=== PATIENT | female | born 1935 | race Caucasian/White ===

== ENCOUNTER → 2018-05-15 | Outpatient (CLI) | payer OTHER | LOC: M.RAD 11:27 | DX: Z12.31 Encounter for screening mammogram for malignant neoplasm of breast (principal) ==

== ENCOUNTER 2020-01-14 15:51 | Observation (INO) | payer MEDICARE ==
[~2020-01-14] VITALS: Ht 160 cm; Wt 54.0 kg
[2020-01-14 15:55] VITALS: BP 137/61
[2020-01-14 16:12] LABS: ABSOLUTE BASOPHILS 0.1 thou/uL (0.0-0.2); ABSOLUTE LYMPHOCYTES 2.9 thou/uL (0.8-5.3); ABSOLUTE MONOCYTES 0.6 thou/uL (0.0-1.2); ABSOLUTE NEUTROPHILS 6.2 thou/uL (1.6-8.1); BASOPHILS 0.7 %; EOSINOPHILS 0.5 %; HEMATOCRIT 41.6 % (37.0-47.0); HEMOGLOBIN 14.5 gm/dL (12.0-15.0); LYMPHOCYTES 29.3 %; MCH 34.6 pg (26.0-34.0); MCHC 34.8 g/dL (28.0-37.0); MCV 99.4 fL (80.0-100.0); MONOCYTES 5.8 %; MPV 8.9 fl. (7.2-11.1); NUCLEATED RBCS 0 /100WBC; PLATELET COUNT* 225 thou/uL (150-400); POLYS 63.7 %; RBC 4.18 mil/uL (4.20-5.00); RDW-CV 12.8 % (10.5-14.5); WBC 9.8 thou/uL (4.0-11.0)
[2020-01-14 16:21] LABS: CALCIUM 10.2 mg/dL (8.5-10.1); CREATININE 1.1 mg/dL (0.6-1.3); POTASSIUM 3.9 mmol/L (3.5-5.1)
[2020-01-14 16:26] LABS: APTT 24.9 Seconds (25.0-31.3); PROTIME 10.6 Seconds (9.20-11.50)
[2020-01-14 16:32] LABS: ALBUMIN 4.1 g/dL (3.4-5.0); TOTAL BILIRUBIN 0.6 mg/dL (<0.1-1.0); TOTAL PROTEIN 7.6 g/dL (6.4-8.2)
[2020-01-14 17:08] LABS: URINE BILIRUBIN NEGATIVE (Negative); URINE BLOOD NEGATIVE (Negative); URINE CLARITY CLEAR; URINE COLOR YELLOW; URINE GLUCOSE-RANDOM NEGATIVE (Negative); URINE KETONES TRACE (Negative); URINE LEUKOCYTES-REFLEX 1+ (Negative); URINE NITRITE-REFLEX NEGATIVE (Negative); URINE PROTEIN NEGATIVE (Negative); URINE UROBILINOGEN 0.2 E.U./dl (0.2-1.0)
[2020-01-14 17:15] LABS: BACTERIA-REFLEX 1-9 Few /HPF (None Seen); CASTS None Seen /LPF (None Seen); CRYSTALS None Seen /LPF (None Seen); MUCUS None Seen strn/LPF (None Seen); SQUAMOUS 0-3 Few /LPF (0-3); URINE RBC None Seen /HPF (0-2); URINE WBC-REFLEX 0-5 Rare /HPF (0-5)
[2020-01-14 20:10] VITALS: BP 129/76
[2020-01-14 20:13] VITALS: BP 123/42
[2020-01-14 23:33] VITALS: BP 109/51
[2020-01-15 04:00] VITALS: BP 121/60
[2020-01-15 05:32] LABS: HEMATOCRIT 38.1 % (37.0-47.0); HEMOGLOBIN 13.3 gm/dL (12.0-15.0); MCH 34.4 pg (26.0-34.0); MCHC 34.9 g/dL (28.0-37.0); MCV 98.6 fL (80.0-100.0); MPV 8.6 fl. (7.2-11.1); RBC 3.86 mil/uL (4.20-5.00); RDW-CV 12.7 % (10.5-14.5); WBC 7.5 thou/uL (4.0-11.0)
[2020-01-15 05:55] LABS: CREATININE 1.1 mg/dL (0.6-1.3); MAGNESIUM 2.1 mg/dL (1.8-2.4); POTASSIUM 4.1 mmol/L (3.5-5.1)
--- NOTE | 2020-01-15 07:02 | NUR ---
PT ALERT AND ORDERED. AMBULATED WITH A STEADY GAIT. NO CHEST PAINS OR DIZZINESS REPORTED ON ADMIT OR THROUGHOUT SHIFT. CALL LIGHT IN REACH. HOURLY ROUNDING FOR SAFETY.
[2020-01-15 07:20] VITALS: BP 121/47
[2020-01-15 09:51] LABS: CHOLESTEROL 150 mg/dL (<200); HDL CHOLESTEROL 59 mg/dL (>40); LDL CHOLESTEROL 79 mg/dL (<100); SERUM ASSESSMENT Clear; TC:HDL 2.5 Ratio (Not establshd); TRIGLYCERIDE 61 mg/dL (<150); VLDL 12 mg/dL (<40)
[2020-01-15 12:09] VITALS: BP 113/50
--- NOTE | 2020-01-15 12:57 | EKG ---
[place] [address] ELECTROCARDIOGRAM REPORT Name: MILEYADIRA Jerry Room: [address]R.#: [id number] Admission: 01/14/20 Attend Phys: Amara Beaver, Discharge: Date of : 33 Date of Service: 01/14/20 1555 Report #: [id number] THIS REPORT FOR: //name// [facility] ED Test Date: 2020-01-14 Test Time: 15:55:47 Pat Name: YADIRA TREADWELL Department: Room: [facility] Gender: F Brick Tester: JUAN : 1935 Requested By: Radha Bullock Order Number: [id number] MD: Shashank Purcell Measurements Intervals [place] Rate: 152 P: [place]: QRS: -50 QRSD: 112 T: 106 QT: 320 QTc: 509 Interpretive Statements Atrial fibrillation with rapid V-rate left bundle branch block Anterior Q waves, possibly due to LVH No previous ECG available for comparison Electronically Signed On 01-15-2020 12:57:14 CDT by Shashank Purcell [email or web address] <ELECTRONICALLY SIGNED> By: Shashank Purcell MD, FACC 01/15/20 1257 1555 1555 Shashank Purcell MD, [facility] /EPI
--- NOTE | 2020-01-15 12:58 | EKG ---
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1935 Requested By: Radha Bullock Order Number: [id number] MD: Shashank Purcell Measurements Intervals [place] Rate: 84 P: 73 [place]: 154 QRS: -40 QRSD: 118 T: 91 QT: 408 QTc: 483 Interpretive Statements Sinus rhythm left bundle branch block Anterior Q waves, possibly due to LVH Compared to ECG 01/14/2020 15:55:47 Atrial fibrillation no longer present Electronically Signed On 01-15-2020 12:58:03 CDT by Shashank Purcell [email or web address] <ELECTRONICALLY SIGNED> By: Shashank Purcell MD, [facility] 01/15/20 1258 1612 1612 Shashank Purcell MD, [facility] /EPI
--- NOTE | 2020-01-15 14:21 | 2DMMODE ---
[place] [address] 2 D/M-MODE ECHOCARDIOGRAM Name: YADIRA TREADWELL Jerry Room: [address] MJulesRJules#: [id number] Admission: 01/14/20 Attend Phys: Amara Beaver, Discharge: Date of : 33 Date of Service: 01/15/20 1421 Report #: [id number] THIS REPORT FOR: cc: Cherelle Muller,Michael Perez MD [facility] ~ APPROVED REPORT Study performed: 01/15/2020 09:09:52 EXAM: Comprehensive 2D, Doppler, and color-flow Echocardiogram Patient Location: In-Patient Room #: 228 Status: routine BSA: 1.55 HR: 67 bpm BP: 121/60 mmHg Rhythm: NSR Other Information Study Quality: Good Indications Atrial Fibrillation Syncope 2D Dimensions IVSd: 9.74 (7-11mm) LVOT Diam: 18.12 (18-24mm) LVDd: 32.53 mm PWd: 7.05 (7-11mm) Ascending Ao: 29.37 (22-36mm) LVDs: 17.05 (25-40mm) Aortic Root: 29.09 mm Volumes Left Atrial Volume (Systole) LA ESV Index: 29.50 mL/m2 Aortic Valve AoV Peak Charles.: 1.38 m/s AO Peak Gr.: 7.56 mmHg LVOT Max P.11 mmHg AO Mean Gr.: 4.22 mmHg LVOT Mean P.50 mmHg LVOT Max V: 1.13 m/s AO V2 VTI: 31.24 cm LVOT Mean V: 0.73 m/s ZHANG (VTI): 2.30 cm2 LVOT V1 VTI: 27.90 [place] [address] 2 D/M-MODE ECHOCARDIOGRAM Name: YADIRA TREADWELL Room: [address]#: [id number] Admission: 01/14/20 Attend Phys: Amara Beaver, Discharge: Date of : 33 Date of Service: 01/15/20 1421 Report #: [id number] Mitral Valve E/A Ratio: 1.07 MV Decel. Time: 218.95 ms MV E Max Charles.: 0.96 m/s MV PHT: 63.50 ms MVA (PHT): 3.46 cm2 TDI E/Lateral E': 12.00 E/Medial E': 12.00 Medial E' Charles.: 0.08 m/s Lateral E' Charles.: 0.08 m/s Pulmonary Valve PV Peak Charles.: 0.85 m/s PV Peak Gr.: 2.89 mmHg Tricuspid Valve RAP Estimate: 5.00 mmHg TR Peak Gr.: 23.27 mmHg RVSP: 28.00 mmHg PA Pressure: 28.00 mmHg Left Ventricle The left ventricle is normal size. There is normal LV segmental wall motion. There is normal left ventricular wall thickness. Left ventricular systolic function is normal. LVEF is 60-65%. Transmitral Doppler flow pattern suggests impaired LV relaxation. Right Ventricle The right ventricle is normal size. The right ventricular systolic function is normal. Atria The left atrium size is normal. The right atrium size is normal. Aortic Valve The aortic valve is normal in structure. No aortic regurgitation is present. There is no aortic valvular stenosis. Mitral Valve The mitral valve is normal in structure. Mild mitral regurgitation. No evidence of mitral valve stenosis. Tricuspid Valve The tricuspid valve is normal in structure. Mild tricuspid regurgitation. [place] [address] 2 D/M-MODE ECHOCARDIOGRAM Name: YADIRA TREADWELL Room: [address]#: [id number] Admission: 01/14/20 Attend Phys: Amara Beaver, Discharge: Date of : 33 Date of Service: 01/15/20 1421 Report #: [id number] Pulmonic Valve The pulmonary valve is normal in structure. Mild pulmonic regurgitation. Great Vessels The aortic root is normal in size. IVC is normal in size and collapses >50% with inspiration. Pericardium There is no pericardial effusion. <Conclusion> The left ventricle is normal size. There is normal left ventricular wall thickness. Left ventricular systolic function is normal. LVEF is 60-65%. Transmitral Doppler flow pattern suggests impaired LV relaxation. Mild mitral regurgitation. Mild tricuspid regurgitation. No pulmonary hypertension. Mild pulmonic regurgitation. IVC is normal in size and collapses >50% with inspiration. <ELECTRONICALLY SIGNED> By: Michael Ervin MD, FACC 01/15/20 1421 142 142 Michael Ervin MD, FACC /INF
--- NOTE | 2020-01-15 16:39 | NUR ---
SW met with pt and pt son to discuss dc planning. Pt lives at home alone, independent. Pt has 5 sons who are all supportive and live in the area. SW discussed Eliquis rx assistance options if needed at dc. Pt and pt son said that they do not believe that pt is ready to dc yet as they do not feel that they've had enough explanation. SW discussed with pt nurse who is aware and informed that cardiology GAMING CAGE WORKER did discuss with pt and pt son. SW to continue to follow to assist with safe dc planning.
[2020-01-15 16:53] VITALS: BP 123/62
[2020-01-15 20:00] VITALS: BP 119/80
[2020-01-16] VITALS: BP 133/57
[2020-01-16 04:00] VITALS: BP 118/54
[2020-01-16 08:04] VITALS: BP 116/50
[2020-01-16] MEDS ORDERED: PACERONE 200 M200 M1 PO (08:55)
[2020-01-16] MEDS ORDERED: ELIQUIS5 MG PO (08:55)
--- NOTE | 2020-01-16 09:17 | NUR ---
ASSUMED CARE OF PT THIS AM AROUND 0715- FIXED CAPITAL CLERK IN PLACE ORDERED, TRACING SR- UPON ASSESSMENT PT NOTED TO BE RESTING IN BED, WATCHING TV-PT A&O X4- CONT OF BOWEL AND BLADDER- UP AD-MASHA IN ROOM, STEADY GAIT NOTED- LCTA, RESP EVEN AND UN-LABORED- VSS- ABD SOFT/ROUND/NON-TENDER, BS X4 QUADS- LAST BM REPORTED X1 DAYS AGO- IV NOTED TO RIGHT AC INTACT AND SL- GOOD PO INTAKE NOTED THIS AM WITH BREAKFAST- PT DENIES ANY C/O PAIN/DISCOMFORT AT THIS TIME- CALL LIGHT AND PERSONAL BELONGINGS WITH IN REACH- ALL NEEDS MET AT THIS TIME-WCTM
--- NOTE | 2020-01-16 10:47 | EKG ---
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: : 1935 Requested By: Lina Weathers Order Number: [id number] Ho MD: Shashank Purcell Measurements Intervals [place] Rate: 62 P: 70 [place]: 163 QRS: -42 QRSD: 120 T: 77 QT: 478 QTc: 486 Interpretive Statements Sinus rhythm left axis left bundle branch block Compared to ECG 01/14/2020 16:12:44 no change Electronically Signed On 01-16-2020 10:47:44 CDT by Shashank Purcell [email or web address] <ELECTRONICALLY SIGNED> By: Shashank Purcell MD, [facility] 01/16/20 1047 0843 0843 Shashank Purcell MD, [facility] /EPI
[2020-01-16 11:45] VITALS: BP 116/50
[2020-01-16 12:00] VITALS: BP 95/63
== END 2020-01-16 12:35 | disposition home or self-care (01) ==
LOC: M.ERS 15:51 → M.TBA-ER 18:01 → M.2W 18:01
PROVIDERS: Personal Emergency Response Attendant; Registered Nurse; ADMIT Internal Medicine; ATTEND Internal Medicine
DX: I48.0 Paroxysmal atrial fibrillation (principal); R55 Syncope and collapse; R00.0 Tachycardia, unspecified; M81.0 Age-related osteoporosis without current pathological fracture; E83.52 Hypercalcemia

== ENCOUNTER → 2020-02-29 | Outpatient (CLI) | payer MEDICARE ==
[~2020-02-29] MED LIST: ELIQUIS5 MG PO; PACERONE 200 M200 M1 PO
--- NOTE | 2020-02-29 16:13 | CARDNUC ---
[place] [address] CARDIAC NUCLEAR IMAGING REPORT Name: MILEYADIRA Room: [facility]#: [id number] Admission: 02/29/20 Attend Phys: Michael Ervin, Discharge: Date of : 33 Date of Service: 02/29/20 1613 Report #: [id number] THIS REPORT FOR: cc: Cherelle Muller,Michael Perez MD [facility] ~ APPROVED REPORT Imaging Protocol: Stress Tc-99m/Rest Tc-99m 1 day Study performed: 02/29/2020 10:16:57 Indication: Atrial Fibrillation, Syncope Patient Location: Out-Patient Stress Tech: Heather Freeman Stress Nurse: Nolvia Kee RN Ht: 5 ft 3 in Wt: 117 lbs BSA: 1.54 m2 BMI: 20.72 Medical History Medications: amiodarone, eliquis Allergies: No known drug allergies Cardiac Risk Factors: Age Exercise History: Physically active Resting Data Rest SPECT myocardial perfusion imaging was performed in supine position 30 minutes following the intravenous injection of 10.5 mCi of Tc-99m Sestamibi. Time of rest injection: 08:40 The images were gated to evaluate regional wall motion and calculate left ventricular ejection fraction. Administration Route: IV Administration Site: Left AC Exercise Stress At peak stress, the patient was injected intravenously with 33.0mCi of Tc-99m Sestamibi. Time of stress injection: 10:40 Administration Route: IV Administration Site: Left AC Heart Rate at time of stress injection: 119 bpm. Patient continued to exercise for 2 minute(s). Gated Stress SPECT was performed 30 [place] [address] CARDIAC NUCLEAR IMAGING REPORT Name: YADIRA TREADWELL Room: [facility]#: [id number] Admission: 02/29/20 Attend Phys: Michael Ervin, Discharge: Date of : 33 Date of Service: 02/29/20 1613 Report #: [id number]. The images were gated to evaluate regional wall motion and calculate left ventricular ejection fraction. Prone imaging was performed. Stress Test Details Stress Test: Exercise stress testing was performed using a Hung protocol. HR Max Heart Rate (APMHR): 135 bpm Resting HR: 59 bpm Target HR (85% APMHR): 114 bpm Max HR Achieved: 130 bpm % of APMHR: 96 Recovery HR: 78 bpm BP Resting BP: 151/71 mmHg Max BP: 198/78 mmHg Recovery BP: 162/77 mmHg ECG Resting ECG: Sinus Rhythm, LBBB Stress ECG: Sinus Rhythm, LBBB Arrhythmia: None Recovery ECG: Sinus Rhythm, LBBB Recovery Arrhythmia: None Clinical Exercise duration: 9 min sec Exercise capacity: 10.16 METs Overall Exercise Capacity for Age: Superior Functional Aerobic Impairment 100% The patient tolerated standard Hung protocol exercise without significant cardiac symptoms. Patient exhibited good exercise tolerance. Nurse Comments stopped pt at 9 min for fear that the next stage would be too fast and she could be injured Stress ECG Conclusion The baseline twelve-lead EKG shows sinus rhythm with left bundle branch block. EKGs obtained during and post exercise show sinus rhythm and sinus tachycardia with left bundle branch block. Study Quality Study: [place] [address] CARDIAC NUCLEAR IMAGING REPORT Name: YADIRA TREADWELL Room: [facility]#: [id number] Admission: 02/29/20 Attend Phys: Michael Ervin, Discharge: Date of : 33 Date of Service: 02/29/20 1613 Report #: [id number] Artifact: No artifact Study Data At rest, the left ventricular ejection fraction was 77%.. Post stress, the left ventricular ejection was 83%.. TID = 0.96. Perfusion Perfusion studies obtained at rest and post exercise stress showed uniform uptake of the radioisotope throughout the myocardium. Wall Motion Normal left ventricular wall motion. Nuclear Conclusion ECG Findings: non-diagnostic Clinical Findings: negative for ischemia Nuclear Findings: negative for ischemia Exercise Capacity: normal Left Ventricular Function: normal Risk Study: low Perfusion images show no defect to suggest infarct or ischemia. Left ventricular systolic function appears normal on gated studies. This is a low risk study. <Conclusion> The baseline twelve-lead EKG shows sinus rhythm with left bundle branch block. EKGs obtained during and post exercise show sinus rhythm and sinus tachycardia with left bundle branch block. <ELECTRONICALLY SIGNED> By: Michael Ervin MD, FACC 02/29/20 1613 1613 1613 Michael Ervin MD, FACC /INF
== END ==
LOC: M.NUC 01-30 12:52
PROVIDERS: ATTEND Internal Medicine Cardiovascular Disease
DX: I48.0 Paroxysmal atrial fibrillation (principal); I44.7 Left bundle-branch block, unspecified